=== PATIENT | female | born 1990 | race Hispanic/Latino ===

== ENCOUNTER 2018-10-10 15:27 | Emergency (ER) | payer MEDICAID, OTHER ==
[2018-10-10 16:15] LABS: EOSINOPHILS % (AUTO) 4.1 % (0.0-8.0); HEMATOCRIT 37.4 % (36-48); LYMPHOCYTES % (AUTO) 24.8 % (21.0-51.0); MEAN CORPUSCULAR HEMOGLOBIN 28.4 pg (27.0-33.0); MEAN CORPUSCULAR HGB CONC 34.1 g/dL (32.0-36.0); MEAN CORPUSCULAR VOLUME 83.3 fL (79-99); MONOCYTES % (AUTO) 4.2 % (3.0-13.0); NEUTROPHILS % (AUTO) 65.9 % (40.0-77.0); PLATELET COUNT (AUTO) 326 K/uL (130-400); RED BLOOD CELL COUNT(AUTO) 4.49 MIL/uL (4.00-5.50); WHITE BLOOD COUNT (AUTO) 9.1 K/uL (4.8-10.8)
[2018-10-10 16:20] LABS: CREATININE 0.7 mg/dL (0.5-1.5); POTASSIUM 3.7 mmol/L (3.5-5.1)
== END 2018-10-10 16:49 | disposition home or self-care (01) ==
LOC: EDH 15:27
DX: O03.9 Complete or unspecified spontaneous abortion without complication (principal); Z3A.01 Less than 8 weeks gestation of pregnancy
CPT/HCPCS: 36415; 80048; 84702; 85025; 86900; 86901

== ENCOUNTER 2023-04-13 10:33 | Observation (INO) | payer MEDICAID, OTHER ==
[~2023-04-13] VITALS: Ht 154.9 cm; Wt 84.8 kg
[2023-04-13 10:39] VITALS: BP 122/62; PULSE 91; RESP 16
[2023-04-13 11:19] LABS: APPEARANCE,URINE CLEAR (CLEAR); BILIRUBIN,URINE NEGATIVE (NEGATIVE); COLOR,URINE YELLOW (YELLOW); GLUCOSE, URINE (UA) NEGATIVE (NEGATIVE); KETONES,URINE 5 mg/dL (NEGATIVE); LEUKOCYTE ESTERASE ,URINE 75 Leu/uL (NEGATIVE); NITRATE,URINE NEGATIVE (NEGATIVE); OCCULT BLOOD,URINE NEGATIVE (NEGATIVE); PH,URINE 6.5 (5.0-8.0); PROTEIN,URINE 30 mg/dL (NEGATIVE); UROBILINOGEN,URINE 0.2 mg/dL (0.2-1.0)
[2023-04-13 11:20] LABS: ADD UA MICROSCOPIC YES
[2023-04-13 11:25] LABS: MUCUS,URINE MANY LPF (None Seen); RBC,URINE 0-1 /HPF (0-1); SQUAMOUS EPITHELIAL CELL,UR MOD /HPF (0-2)
[2023-04-13 11:26] LABS: AMPHET/METH SCREEN,URINE NEGATIVE (NEGATIVE); BARBITURATE SCREEN, URINE NEGATIVE (NEGATIVE); BENZODIAZEPINES SCREEN,URINE NEGATIVE (NEGATIVE); CANNABINOID SCREEN,URINE NEGATIVE (NEGATIVE); COCAINE SCREEN,URINE NEGATIVE (NEGATIVE); OPIATE SCREEN,URINE NEGATIVE (NEGATIVE); PHENCYCLIDINE SCREEN,URINE NEGATIVE (NEGATIVE)
[2023-04-13] MEDS ORDERED: LACTATED RINGERS 1000ML 1,000 ML IV PRN (11:30)
[2023-04-13 12:38] LABS: SARS-CoV-2, RNA, NAAT NEGATIVE SARS CoV-2 (NEGATIVE)
[2023-04-13 12:41] LABS: INFLUENZA TYPE B Negative For Type B (NEGATIVE)
[2023-04-13 13:23] LABS: INFLUENZA TYPE A Positive For Type A (NEGATIVE)
[2023-04-13 14:02] LABS: RAPID GROUP A STREP negative (NEGATIVE)
[2023-04-13] MEDS ORDERED: OSELTAMIVIR PHOSPHATE 75 MG CAP PO SCH (14:30)
[2023-04-13] MEDS ORDERED: ACETAMINOPHEN 500 MG TABLET PO PRN (14:30)
[2023-04-13] MEDS ORDERED: ONDANSETRON 4MG TABLET PO PRN (14:30)
[2023-04-13] MEDS ORDERED: DIPHENHYDRAMINE HCL 25 MG CAPSULE PO ONE (14:30)
[2023-04-13] MEDS ORDERED: ONDANSETRON 4MG INJ ONE (16:10)
[2023-04-13] MEDS ORDERED: ONDANSETRON 4MG INJ IVP PRN (16:15)
[2023-04-13 20:43] VITALS: TEMP 99.8
== END 2023-04-13 21:25 | disposition home or self-care (01) ==
LOC: EDH 10:33 → LDH 10:34
PROVIDERS: ADMIT Internal Medicine; ATTEND Internal Medicine
DX: O21.2 Late vomiting of pregnancy (principal); Z20.822 Contact with and (suspected) exposure to COVID-19; O26.892 Other specified pregnancy related conditions, second trimester; R50.9 Fever, unspecified; R10.13 Epigastric pain; Z79.899 Other long term (current) drug therapy; Z3A.24 24 weeks gestation of pregnancy
CPT/HCPCS: 96360; 96361; 80305; 87088; 87880; 87804 ×2; 81001; 87635; G0378 ×7; J2405